=== PATIENT | female | born 1960 | race Caucasian/White ===

== ENCOUNTER 2017-03-12 22:14 | Emergency (ER) | payer OTHER ==
[2017-03-13] MEDS ORDERED: Alum Hydrox/Mag Hydrox/Simeth 15 ML, Lidocaine 2% 15 ML PO ONE ×2 (00:32)
[2017-03-13 01:10] VITALS: BP 146/75
--- NOTE | 2017-03-13 03:13 | EDM.PDOC ---
ED HPI GENERAL MEDICAL PROBLEM - General Chief Complaint: Abdominal Pain Stated Complaint: ABD PAIN Time Seen by Provider: 03/13/17 00:25 Source of Information: Reports: Patient History Limitations: Reports: No Limitations - History of Present Illness INITIAL COMMENTS - FREE TEXT/NARRATIVE: This patient complains of upper abdominal pain that started about 2 PM previously the pain was 10 out of 10 now it's down to 3 out of 10. She complains of nausea but no vomiting. The pain radiates to her back. The pain is better if she presses her abdomen or rocks herself. 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: - Past Surgical History Female Surgical History: Reports: Other (See Below) Other Female Surgeries/Procedures: cysts removed from ovary Musculoskeletal Surgical History: Reports: Other (See Below) Other Musculoskeletal Surgeries/Procedures:: r knee surgery Social & Family History - Tobacco Use Smoking Status *Q: Never Smoker Second Hand Smoke Exposure: No - Caffeine Use Caffeine Use: Reports: Soda - Alcohol Use Days Per Week of Alcohol Use: 0 - Recreational Drug Use Recreational Drug Use: No ED ROS GENERAL - Review of Systems Review Of Systems: ROS reveals no pertinent complaints other than HPI. ED EXAM, GI/ABD - Physical Exam Exam: See Below Exam Limited By: No Limitations General Appearance: Alert, WD/WN, Mild Distress Eyes: Bilateral: Normal Appearance Throat/Mouth: Normal Oropharynx Neck: Normal Inspection Respiratory/Chest: Lungs Clear Cardiovascular: Regular Rate, Rhythm GI/Abdominal: Soft, Other (Right upper quadrant tenderness) Back Exam: Normal Inspection Extremities: Normal Inspection Neurological: Alert Psychiatric: Normal Affect Skin Exam: Warm, Dry Course - Vital Signs Last Recorded V/S: Last Vital Signs Temp 36.5 C 03/13/17 01:09 Pulse 49 L 03/13/17 01:09 Resp 16 03/13/17 01:09 BP 146/75 H 03/13/17 01:09 Pulse Ox 94 L 03/13/17 01:09 - Orders/Labs/Meds Labs: Laboratory Tests 03/13/17 03/13/17 03/13/17 Range/Units 00:36 00:42 00:42 WBC 6.7 (4.5-11.0) K/uL RBC 4.84 (3.30-5.50) M/uL Hgb 14.6 (12.0-15.0) g/dL Hct 44.0 (36.0-48.0) % MCV 91 (80-98) fL MCH 30 (27-31) pg MCHC 33 (32-36) % Plt Count 241 (150-400) K/uL Neut % (Auto) 76 H (36-66) % Lymph % (Auto) 18 L (24-44) % [place] % (Auto) 5 (2-6) % Eos % (Auto) 0 L (2-4) % Baso % (Auto) 0 (0-1) % Sodium 142 (140-148) mmol/L Potassium 3.8 (3.6-5.2) mmol/L Chloride 103 (100-108) mmol/L Carbon Dioxide 28 (21-32) mmol/L Anion Gap 10.6 (5.0-14.0) mmol/L BUN 20 H (7-18) mg/dL Creatinine 0.8 (0.6-1.0) mg/dL Est Cr Clr Drug Dosing 64.95 mL/min Estimated GFR (MDRD) > 60 (>60) Glucose 139 H (74-106) mg/dL Calcium 8.5 (8.5-10.1) mg/dL Total Bilirubin 0.5 (0.2-1.0) mg/dL AST 387 H (15-37) U/L ALT 368 H (12-78) U/L Alkaline Phosphatase 155 H (46-116) U/L Troponin I (0.000-0.056) ng/mL Total Protein 7.5 (6.4-8.2) g/dL Albumin 3.5 (3.4-5.0) g/dL Globulin 4.0 H (2.3-3.5) g/dL Albumin/Globulin Ratio 0.9 L (1.2-2.2) Amylase (25-115) U/L Lipase (73-393) U/L Urine Color Yellow Urine Appearance Cloudy Urine pH 6.0 (4.5-8.0) Ur Specific [place] 1.020 (1.008-1.030) Urine Protein Negative (NEGATIVE) mg/dL Urine Glucose (UA) Normal (NEGATIVE) mg/dL Urine Ketones Negative (NEGATIVE) mg/dL Urine Occult Blood Negative (NEGATIVE) Urine Nitrite Positive H (NEGATIVE) Urine Bilirubin Negative (NEGATIVE) Urine Urobilinogen 1 (NORMAL) mg/dL Ur Leukocyte Esterase Negative (NEGATIVE) Urine RBC 0-5 (0-5) Urine WBC 0-5 (0-5) Ur Epithelial Cells Few Amorphous Sediment Few Urine Bacteria Many Urine Mucus Not seen 03/13/17 03/13/17 Range/Units 00:42 00:42 WBC (4.5-11.0) K/uL RBC (3.30-5.50) M/uL Hgb (12.0-15.0) g/dL Hct (36.0-48.0) % MCV (80-98) fL MCH (27-31) pg MCHC (32-36) % Plt Count (150-400) K/uL Neut % (Auto) (36-66) % Lymph % (Auto) (24-44) % [place] % (Auto) (2-6) % Eos % (Auto) (2-4) % Baso % (Auto) (0-1) % Sodium (140-148) mmol/L Potassium (3.6-5.2) mmol/L Chloride (100-108) mmol/L Carbon Dioxide (21-32) mmol/L Anion Gap (5.0-14.0) mmol/L BUN (7-18) mg/dL Creatinine (0.6-1.0) mg/dL Est Cr Clr Drug Dosing mL/min Estimated GFR (MDRD) (>60) Glucose (74-106) mg/dL Calcium (8.5-10.1) mg/dL Total Bilirubin (0.2-1.0) mg/dL AST (15-37) U/L ALT (12-78) U/L Alkaline Phosphatase (46-116) U/L Troponin I < 0.017 (0.000-0.056) ng/mL Total Protein (6.4-8.2) g/dL Albumin (3.4-5.0) g/dL Globulin (2.3-3.5) g/dL Albumin/Globulin Ratio (1.2-2.2) Amylase 22 L (25-115) U/L Lipase 86 (73-393) U/L Urine Color Urine Appearance Urine pH (4.5-8.0) Ur Specific [place] (1.008-1.030) Urine Protein (NEGATIVE) mg/dL Urine Glucose (UA) (NEGATIVE) mg/dL Urine Ketones (NEGATIVE) mg/dL Urine Occult Blood (NEGATIVE) Urine Nitrite (NEGATIVE) Urine Bilirubin (NEGATIVE) Urine Urobilinogen (NORMAL) mg/dL Ur Leukocyte Esterase (NEGATIVE) Urine RBC (0-5) Urine WBC (0-5) Ur Epithelial Cells Amorphous Sediment Urine Bacteria Urine Mucus Meds: Medications Discontinued Medications Generic Name Dose Route Start Last Admin Trade Name Freq PRN Reason Stop Dose Admin Al Hydroxide/Mg Hydroxide 15 0 ml 03/13/17 00:32 03/13/17 01:06 ml/ Lidocaine HCl 15 ml PO 03/13/17 00:33 30 ml ONETIME ONE Administration - Radiology Interpretation Free Text/Narrative:: Gallbladder ultrasound showed cholelithiasis with mild gallbladder wall thickening. There was mild dilatation of the common bile duct. - Re-Assessments/Exams Free Text/Narrative Re-Assessment/Exam: 03/29/17 21:57 EKG showed normal sinus rhythm at 53 bpm no evidence of ischemia. It was explained to the patient that she does have some gallstones and there was probably some blockage in her common bile duct but it appears that a little stone might have been passed. She will need follow-up for this and probably if she continues to have symptoms then at first an ERCP to rule out a blocked common bile duct and eventually a cholecystectomy. She doesn't need hospitalization right now however. Referrals can be made through clinic. Case discussed with Dr. Al 03/29/17 21:58 Departure - Departure Time of Disposition: 03:12 Disposition: Home, Self-Care 01 Condition: Fair Clinical Impression: Abdominal pain - Discharge Information Instructions: Abdominal Pain, Adult Referrals: Raul Boo MD [Primary Care Provider] - Forms: ED Department Discharge Additional Instructions: Take Percocet 5/325 one or 2 tablets every 4 hours as needed for pain. Percocet may cause sedation and impair driving For nausea use Zofran 4 mg one or 2 every 6 hours as needed. Strict clear liquid diet. See Dr. Al Wednesday morning in clinic. If the pain is getting worse or you are not able to hold down liquids or especially if you develop a fever then return to the emergency department
== END 2017-03-13 03:31 | disposition home or self-care (01) ==
LOC: JP.ED 22:14
DX: R10.11 Right upper quadrant pain (principal); I10 Essential (primary) hypertension; Z79.899 Other long term (current) drug therapy; Z88.0 Allergy status to penicillin
CPT/HCPCS: 36415; 76705; 80053; 81001; 82150; 83690; 84484; 85025; 93005; A9270; 99284-25

== ENCOUNTER 2017-03-26 05:48 | Day surgery (SDC) | payer OTHER ==
[2017-03-26] MEDS ORDERED: Lidocaine 1% with EPINEPHrine 1:100,000 50 ML MDV ONE (06:40)
[2017-03-26] MEDS ORDERED: Bupivacaine 0.5% 50 ML MDV ONE (06:40)
[2017-03-26] MEDS ORDERED: Sodium Chloride 0.9% 1,000 ML IV SCH (06:45)
[2017-03-26] MEDS ORDERED: fentaNYL 250 MCG/5 ML SDV ONE ×2 (07:24→08:33)
[2017-03-26] MEDS ORDERED: Ondansetron 4 MG/2 ML SDV ONE (07:25)
[2017-03-26] MEDS ORDERED: Neostigmine Methylsulfate 1 MG/ML 5 ML Syringe ONE (07:25)
[2017-03-26] MEDS ORDERED: Propofol 200 MG/20 ML SDV ONE (07:25)
[2017-03-26] MEDS ORDERED: Dexamethasone 4 MG/ML SDV ONE (07:25)
[2017-03-26] MEDS ORDERED: Rocuronium 50 MG/5 ML Vial ONE (07:25)
[2017-03-26] MEDS ORDERED: metroNIDAZOLE/Normal Saline 500 MG in Premix Bag 1 BAG IV ONE (07:45)
[2017-03-26] MEDS ORDERED: ceFAZolin 2 GM in Sodium Chloride 0.9% 100 ML IV ONE (08:00)
[2017-03-26] MEDS ORDERED: ceFAZolin 2 GM in Sodium Chloride 0.9% 50 ML IV ONE (08:00)
[2017-03-26] MEDS ORDERED: Succinylcholine/Normal Saline 200 MG/10 ML Syringe ONE (08:01)
[2017-03-26] MEDS ORDERED: Ketorolac 60 MG/2 ML SDV ONE (08:54)
[2017-03-26] MEDS ORDERED: diphenhydrAMINE 50 MG/ML SDV IVPUSH PRN (09:10)
[2017-03-26] MEDS ORDERED: Acetaminophen/HYDROcodone 325-10 MG Tab PO PRN (09:10)
[2017-03-26] MEDS ORDERED: Benzocaine/Cetylpyridinium/Menthol Lozenge MUCMEM PRN (09:10)
[2017-03-26] MEDS ORDERED: Docusate Sodium 100 MG Cap PO PRN (09:10)
[2017-03-26] MEDS ORDERED: fentaNYL 100 MCG/2 ML SDV IVPUSH PRN (09:14)
[2017-03-26 12:34] VITALS: BP 127/78
--- NOTE | 2017-03-26 14:24 | OR ---
DATE OF PROCEDURE: 03/26/2017 PROCEDURE: Laparoscopic cholecystectomy. PREOPERATIVE DIAGNOSIS: Cholelithiasis, cholecystitis. POSTOPERATIVE DIAGNOSIS: Cholelithiasis, cholecystitis. COMPLICATIONS: None. ENGINEER PROCESS: None. ANESTHESIA: General/local. INDICATIONS: This is a 56-year-old female with clinically diagnosed cholecystitis, choledocholithiasis requiring definitive treatment. Risks, benefits, alternatives, and limitations, including, but not limited to infection, bleeding, and common bile duct injury, cystic duct leaks, and other risks were explained to the patient, and she wished to proceed. PROCEDURE IN DETAIL: The patient was placed in supine position. A supraumbilical curvilinear incision was made. A Veress needle was used to enter the abdomen. A drop test was performed without abnormality. An Optiview trocar was inserted without abnormality. A 10 and two 5 mm ports were also entered under direct visualization. Blunt dissection was then commenced eventually leading to a "clear view" of a single pulsatile structure in the gallbladder and a single nonpulsatile structure in the gallbladder. These were subsequently clipped x3 and transected. Of note, a small vein was noted to be anterior to the gallbladder, was also clipped and respectively cut. The remaining 1/3rd of the gallbladder was removed off the gallbladder bed without difficulty. Minimal bleeding in the gallbladder bed was controlled with electrocautery. The gallbladder was removed through the upper port using a bag. This was thoroughly irrigated. The air was removed without difficulty. The wounds were closed with 3-0 Vicryl and 4-0 Vicryl interrupted running fashion after thorough irrigation and Dermabond was applied. The patient tolerated the procedure well. Franklin Dawn MD /[id number]
== END 2017-03-26 13:19 | disposition home or self-care (01) ==
LOC: JP.SDS 05:48 → JP.MS 09:50 → JP.SDS 13:19
PROVIDERS: ATTEND Surgery
DX: K80.12 Calculus of gallbladder with acute and chronic cholecystitis without obstruction (principal); I10 Essential (primary) hypertension; E66.9 Obesity, unspecified; Z88.0 Allergy status to penicillin; Z88.8 Allergy status to other drugs, medicaments and biological substances
CPT/HCPCS: 47562; 88304; A9270; J0690; J1100; J1885; J2405; J2704; J3010; J7040; J7050